=== PATIENT | male | born 1955 | race American Indian/Alaskan Native ===

== ENCOUNTER 2017-09-17 22:42 | Emergency (ER) | payer SELFPAY ==
[2017-09-18 01:18] LABS: Basophils % (Auto) 0.2 % (0.0-1.8); Eosinophils % (Auto) 0.3 % (0.0-4.3); Hematocrit 36.1 % (35.5-45.6); Lymphocytes # (Auto) 0.8 K/mm3 (1.2-5.4); Lymphocytes % (Auto) 5.5 % (13.4-35.0); Mean Corpuscular HGB Conc 33 % (32-34); Mean Corpuscular Hemoglobin 31 pg (28-32); Mean Corpuscular Volume 93 fl (84-94); Monocytes # (Auto) 1.2 K/mm3 (0.0-0.8); Monocytes % (Auto) 7.9 % (0.0-7.3); Platelet Count 392 K/mm3 (140-440); Red Blood Count 3.89 M/mm3 (3.65-5.03); Red Cell Distribution Width 12.8 % (13.2-15.2)
[2017-09-18 01:27] LABS: Albumin 3.9 g/dL (3.9-5); Calcium 8.6 mg/dL (8.4-10.2)
[2017-09-18 02:33] LABS: Bilirubin,Urine NEG (Negative); Blood,Urine NEG (Negative); Color,Urine Yellow (Yellow); Mucus,Urine FEW /HPF; Nitrite,Urine NEG (Negative); Protein,Urine <15 mg/dL mg/dL (Negative)
[2017-09-18] MEDS ORDERED: MORPHINE IV ONE ×2 (02:48→05:39)
--- NOTE | 2017-09-18 03:12 | Emergency Department Report ---
HPI - General Chief Complaint: Abdominal Pain Time Seen by Provider: 09/18/17 02:25 - HPI HPI: This is a 62-year-old male presents to the emergency department with a complaint of left-sided abdominal pain that has been going on since this morning. It is a throbbing sensation that is associated with some nausea without vomiting. He states that it feels like there is a knot in this area. He denies any dysuria, diarrhea or constipation, fever. He took a hydrocodone pill from his earlier in the morning with some relief but it has returned. He has a remote history of prostate cancer and a past history of multiple previous kidney stones. No recent travel or sick contacts at home. He gets his care through the [facility]. ED Past Medical Hx - Past Medical History Previous Medical History?: No - Surgical History Past Surgical History?: No - Social History Smoking Status: Never Smoker Substance Use Type: None - Medications Home Medications: Home Medications Medication Instructions Recorded Confirmed Last Taken Type Ciprofloxacin HCl [Cipro] 500 mg PO BID #10 tablet 09/18/17 Unknown Rx HYDROcodone/APAP 5-325 [Peever 1 each PO Q6HR PRN #10 tablet 09/18/17 Unknown Rx 5/325] Tamsulosin [Flomax] 0.4 mg PO QDAY #5 cap 09/18/17 Unknown Rx ED Review of Systems ROS: Stated complaint: ABDOMINAL PAIN,VOMITING Other details as noted in HPI Comment: All other systems reviewed and negative Constitutional: denies: chills, fever Eyes: denies: eye pain, eye discharge, vision change ENT: denies: ear pain, throat pain Respiratory: denies: cough, shortness of breath, wheezing Cardiovascular: denies: chest pain, palpitations Gastrointestinal: abdominal pain, nausea. denies: vomiting Genitourinary: denies: urgency, dysuria Musculoskeletal: denies: back pain, joint swelling, arthralgia Skin: denies: rash, lesions Neurological: denies: headache, weakness, paresthesias Physical Exam - Physical Exam Vital Signs: Vital Signs 09/17/17 09/17/17 09/18/17 23:13 23:16 01:04 Temperature 98.3 F 98.3 F Pulse Rate 78 73 Respiratory 18 22 19 Rate Blood Pressure 146/76 146/76 O2 Sat by Pulse 98 98 Oximetry 09/18/17 09/18/17 09/18/17 01:15 01:30 01:45 Temperature Pulse Rate 65 66 71 Respiratory 7 L 22 13 Rate Blood Pressure 165/78 163/77 162/75 O2 Sat by Pulse 99 99 99 Oximetry 09/18/17 02:00 Temperature Pulse Rate 73 Respiratory 19 Rate Blood Pressure 162/75 O2 Sat by Pulse 99 Oximetry Physical Exam: GENERAL: The patient is well-developed well-nourished. HENT: Normocephalic. Atraumatic. Patient has moist mucous membranes. EYES: Extraocular motions are intact. Pupils equal reactive to light bilaterally. NECK: Supple. Trachea is midline. CHEST/LUNGS: Clear to auscultation. There is no respiratory distress noted. HEART/CARDIOVASCULAR: Regular. There is no tachycardia. There is no murmur. ABDOMEN: Abdomen is soft. Unable to reproduce left-sided abdominal and flank pain to palpation. No guarding rebound tenderness. Patient has normal bowel sounds. There is no abdominal distention. SKIN: Skin is warm and dry. NEURO: The patient is awake, alert, and oriented. The patient is cooperative. The patient has no focal neurologic deficits. The patient has normal speech. MUSCULOSKELETAL: There is no tenderness or deformity. There is no limitation range of motion. There is no evidence of acute injury. ED Course Vital Signs 09/17/17 09/17/17 09/18/17 23:13 23:16 01:04 Temperature 98.3 F 98.3 F Pulse Rate 78 73 Respiratory 18 22 19 Rate Blood Pressure 146/76 146/76 O2 Sat by Pulse 98 98 Oximetry 09/18/17 09/18/17 09/18/17 01:15 01:30 01:45 Temperature Pulse Rate 65 66 71 Respiratory 7 L 22 13 Rate Blood Pressure 165/78 163/77 162/75 O2 Sat by Pulse 99 99 99 Oximetry 09/18/17 02:00 Temperature Pulse Rate 73 Respiratory 19 Rate Blood Pressure 162/75 O2 Sat by Pulse 99 Oximetry ED Medical Decision Making - Lab Data Result diagrams: 09/17/17 00:13 09/17/17 00:13 - Radiology Data Radiology results: report reviewed EXAM: CT ABDOMEN PELVIS WO CON HISTORY: left sided abdominal pain TECHNIQUE: Routine axial imaging was obtained of the abdomen pelvis without oral or IV contrast. Sagittal and coronal reconstructions were reviewed. FINDINGS: The lung bases reveal minimal dependent atelectasis in both lower lobes. Pleural fluid is not identified. There is a small hiatal hernia. The liver, gallbladder, pancreas, spleen, and adrenal glands appear normal. There is moderate left-sided hydronephrosis secondary to a 6.5 millimeter stone in the distal left ureter. Both kidneys otherwise reveal multiple nonobstructing stones bilaterally measuring to 2 millimeters in diameter. There is no evidence of right-sided hydronephrosis. There calcification of the abdominal aorta. The bowel loops are normal in caliber and reveal a few small air-fluid levels in small bowel loops which is non specific. There are a few uncomplicated colonic diverticula. The appendix appears normal. There is no evidence of free fluid or adenopathy. In the pelvis the prostate gland is normal in size. There are several foci of metallic shadowing in the prostate gland possibly from radiation implant seeds. Clinical history is needed. The bladder appears normal. The skeletal structures do not show any acute changes. IMPRESSION: Moderate left-sided hydronephrosis secondary to a partially obstructing 6.5 mm stone in the distal left ureter. Multiple small nonobstructing stones in both kidneys. Normal appendix. A few uncomplicated colonic diverticula. Transcribed By: ARISTIDES Dictated By: EMILY NAVARRO MD Electronically Authenticated By: EMILY NAVARRO MD Signed Date/Time: 09/17/17 7681 - Medical Decision Making 1 day history of left-sided abdominal pain with some previous nausea and possibly one episode of vomiting. Labs are mostly unremarkable except for renal sufficiency with a creatinine of 1.9. The patient says that he has a history of this he believes from previous workups. CT of the abdomen and pelvis without contrast shows a left-sided 6.5 mm stone in the distal ureter with some moderate hydronephrosis. Urinalysis does not show any signs of urinary tract infection. Patient says he is feeling improved after a dose of pain medication. He says he has good follow-up with urology and therefore will go home with Flomax, pain medication, antibiotics and a strainer. He will return to the ER with any worsening of symptoms or any acute distress. - Differential Diagnosis nephrolithiasis, hydronephrosis, diverticulitis, colitis Critical Care Time: No Critical care attestation.: If time is entered above; I have spent that time in minutes in the direct care of this critically ill patient, excluding procedure time. ED Disposition Clinical Impression: Left flank pain, Nephrolithiasis Hydronephrosis Qualifiers: Hydronephrosis type: with renal calculous obstruction Qualified Code(s): N13.2 - Hydronephrosis with renal and ureteral calculous obstruction Disposition: TO HOME OR SELFCARE Is pt being admited?: No Condition: Stable Instructions: Kidney Stones (ED), Renal Colic (ED), How to Strain Your Urine ( ED) Additional Instructions: Please follow-up with your urologist tomorrow. Strain your urine to see if you pass the stone. Return to the emergency Department with any worsening of your symptoms, development of fever, intractable vomiting, or any acute distress. You have been prescribed a medication that is sedating and therefore should not be taken prior to driving, working, and responsible for children and in no way should be mixed with alcohol of any quantity. Prescriptions: Ciprofloxacin HCl [Cipro] 500 mg PO BID #10 tablet HYDROcodone/APAP 5-325 [Peever 5/325] 1 each PO Q6HR PRN #10 tablet PRN Reason: Pain Tamsulosin [Flomax] 0.4 mg PO QDAY #5 cap Referrals: BERTA ARMSTRONG MD [Primary Care Provider] - 3-5 Days Time of Disposition: 04:33
--- NOTE | 2017-09-18 03:29 | Cat Scan Report ---
FINAL REPORT EXAM: CT ABDOMEN PELVIS WO CON HISTORY: left sided abdominal pain TECHNIQUE: Routine axial imaging was obtained of the abdomen pelvis without oral or IV contrast. Sagittal and coronal reconstructions were reviewed. FINDINGS: The lung bases reveal minimal dependent atelectasis in both lower lobes. Pleural fluid is not identified. There is a small hiatal hernia. The liver, gallbladder, pancreas, spleen, and adrenal glands appear normal. There is moderate left-sided hydronephrosis secondary to a 6.5 millimeter stone in the distal left ureter. Both kidneys otherwise reveal multiple nonobstructing stones bilaterally measuring to 2 millimeters in diameter. There is no evidence of right-sided hydronephrosis. There calcification of the abdominal aorta. The bowel loops are normal in caliber and reveal a few small air-fluid levels in small bowel loops which is non specific. There are a few uncomplicated colonic diverticula. The appendix appears normal. There is no evidence of free fluid or adenopathy. In the pelvis the prostate gland is normal in size. There are several foci of metallic shadowing in the prostate gland possibly from radiation implant seeds. Clinical history is needed. The bladder appears normal. The skeletal structures do not show any acute changes. IMPRESSION: Moderate left-sided hydronephrosis secondary to a partially obstructing 6.5 mm stone in the distal left ureter. Multiple small nonobstructing stones in both kidneys. Normal appendix. A few uncomplicated colonic diverticula.
[2017-09-18] MEDS: NACL 0.9% 1000 ML 1,000 ML IV ONE ×2 (04:20→06:27)
[2017-09-18] MEDS ORDERED: FLOMAX PO ONE (04:33)
[2017-09-18] MEDS ORDERED: LEVAQUIN PO ONE (04:33)
[2017-09-18] MEDS ORDERED: DILAUDID IV ONE (07:15)
[2017-09-18 08:21] VITALS: BP 161/80
== END 2017-09-18 09:30 | disposition home or self-care (01) ==
LOC: ED 22:42
DX: N13.2 Hydronephrosis with renal and ureteral calculous obstruction (principal); N20.0 Calculus of kidney; R10.30 Lower abdominal pain, unspecified
CPT/HCPCS: 36415; 74176; 80053; 81001; 83690; 85025; 96374; 96375; 96376; 99284; J1170; J2270; J7030